=== PATIENT | male | born 1935 | race Caucasian/White ===

== ENCOUNTER → 2017-08-16 | Outpatient (CLI) | payer OTHER ==
[~2017-08-16] MED LIST: ASPI-496 PO; CALC625T47 PO; FLAX1000 PO; HYDR25TA6 PO; KORE100C PO; LISI-170 PO; OMEP-110 PO; TAMS0.4C2 PO; potassium PO
[2017-08-16 11:27] LABS: ASPARTATE AMINO TRANSFERASE 27 U/L (15-37); BLOOD UREA NITROGEN 21 mg/dL (7-18)
== END | disposition home or self-care (01) ==
LOC: STAR 10:06
PROVIDERS: ATTEND Specialist
DX: Z01.818 Encounter for other preprocedural examination (principal); I48.91 Unspecified atrial fibrillation; I51.7 Cardiomegaly
CPT/HCPCS: 36415; 80053; 93005

== ENCOUNTER 2017-08-22 06:57 | Day surgery (SDC) | payer OTHER ==
[2017-08-16 11:29] VITALS: BP 148/90
[~2017-08-22] VITALS: Ht 177.8 cm; Wt 108.5 kg
[~2017-08-22 06:57] MED LIST changes: +EPINEPHRINE 1 MG/ML, 1ML ONE; +LIDOCAINE/PF 1%, 30ML ONE; +MINERAL OIL 10 ML VIAL MC ONE
[2017-08-22] MEDS ORDERED: LACTATED RINGERS 1,000 ML IV SCH (07:29)
[2017-08-22 07:30] VITALS: BP 148/90
[2017-08-22] MEDS ORDERED: LIDOCAINE 1%, 2ML SQ PRN (07:30)
[2017-08-22] MEDS ORDERED: LIDOCAINE 1%, 2ML ONE (07:36)
[2017-08-22] MEDS ORDERED: FENTANYL PF 100 MCG/2ML ONE (08:55)
[2017-08-22] MEDS ORDERED: SUCCINYLCHOLINE 20 MG/ML, 10ML ONE (09:15)
[2017-08-22] MEDS ORDERED: ROCURONIUM 10 MG/ML ONE (09:15)
[2017-08-22] MEDS ORDERED: PROPOFOL 10 MG/ML, 20ML ONE (09:15)
[2017-08-22] MEDS ORDERED: ONDANSETRON 2MG/ML, 2ML ONE (09:15)
[2017-08-22] MEDS ORDERED: DEXAMETHASONE 4 MG/ML, 5ML ONE (09:15)
[2017-08-22] MEDS ORDERED: ONDANSETRON 2MG/ML, 2ML IVPush PRN (09:30)
[2017-08-22] MEDS ORDERED: HYDROcodone/APAP 7.5-325MG/15ML UDC PO PRN (09:30)
[2017-08-22] MEDS ORDERED: LABETALOL 5MG/ML, 20ML IV PRN (09:30)
[2017-08-22] MEDS ORDERED: HYDROmorphone 1 MG/ML, 1ML IV PRN (09:30)
[2017-08-22] MEDS ORDERED: PROMETHAZINE 25 MG/ML, 1ML IV PRN (09:30)
[2017-08-22] MEDS ORDERED: ACETAMINOPHEN 325 MG TABLET PO PRN (09:30)
[2017-08-22] MEDS ORDERED: hydrALAzine 20 MG/ML, 1ML IV PRN (09:30)
[2017-08-22] MEDS ORDERED: FENTANYL PF 100 MCG/2ML IV PRN (09:30)
[2017-08-22] MEDS ORDERED: MIDAZOLAM 1 MG/ML, 2ML IV PRN (09:30)
[2017-08-22] MEDS ORDERED: THROMBIN 20,000 UNIT VIAL TP ONE (10:12)
[2017-08-22] MEDS ORDERED: BACITRACIN ZINC OINT 500U/GM, 0.9 GM ONE (10:46)
[2017-08-22] MEDS ORDERED: ACETAMINOPHEN 650 MG/20.3 ML UDC ONE (11:06)
[2017-08-22] MEDS ORDERED: HYDROcodone/APAP 7.5-325MG/15ML UDC ONE (11:07)
== END 2017-08-22 14:30 ==
LOC: OUT 06:57
PROVIDERS: ATTEND Specialist
DX: C43.4 Malignant melanoma of scalp and neck (principal); I10 Essential (primary) hypertension; Z88.5 Allergy status to narcotic agent; Z86.14 Personal history of Methicillin resistant Staphylococcus aureus infection; Z87.39 Personal history of other diseases of the musculoskeletal system and connective tissue
CPT/HCPCS: 11644; 15120; 88307; J0171; J0330; J1100; J2405; J2704; J3010; J3490; J7120